=== PATIENT | male | born 1955 | race Caucasian/White ===

== ENCOUNTER 2018-02-06 21:24 | Observation (INO) | payer OTHER ==
[2018-02-06] MEDS ORDERED: NS 1,000 ML IV ONE (22:01)
--- NOTE | 2018-02-06 22:01 | EDPHY ---
H & P Stated Complaint: 4 DAYS HERNANDEZ, WORST EVER TONIGHT,FEVERS/NIGHT SWEATS/RASH JUNAID, SAW PCP TODAY, Time Seen by Provider: 02/06/18 21:58 HPI/ROS: HPI CHIEF COMPLAINT: Headache, rash, fever HISTORY OF PRESENT ILLNESS: The patient very pleasant 62-year-old male, is otherwise healthy denies having any significant medical history does have a remote history of headaches he presents emergency room for a rash that appears to be petechial on his legs and around his ankles, diffuse joint pain and swelling, additionally has been sick for 4 days with a fever. He states 4 days ago developed a fever 102.8. The high his fever he saw was 103. He did not have a fever today. He developed a right-sided headache. He describes sharp stabbing the right-sided headache goes from his right frontal region down his right neck. He denies stiff neck. He called his primary care doctor's referred here to the emergency room. Patient states that his main complaint is a headache right-sided, additionally joint pain. Denies chest pain or shortness of breath, denies productive cough. Denies vomiting or diarrhea. Denies stiff neck. He was started on Tamiflu by his PCP PCP: Dr. Araceli Caro. [facility]. Past Medical History: Denies medical history Past Surgical History: Denies recent surgery Social History: Denies daily use drugs alcohol tobacco. Family History: Noncontributory ROS REVIEW OF SYSTEMS: A comprehensive 10 point review of systems is otherwise negative aside from elements mentioned in the history of present illness. Exam Constitutional appears well nontoxic triage nursing summary reviewed, vital signs reviewed, awake/alert. Eyes normal conjunctivae and sclera, EOMI, PERRLA. HENT normal inspection, atraumatic, moist mucus membranes, no epistaxis, neck supple/ no meningismus, no raccoon eyes. Respiratory clear to auscultation bilaterally, normal breath sounds, no respiratory distress, no wheezing. Cardiovascular rate normal, regular rhythm, no murmur, no edema, distal pulses normal. Gastrointestinal soft, non-tender, no rebound, no guarding, normal bowel sounds, no distension, no pulsatile mass. Genitourinary no CVA tenderness. Musculoskeletal no midline vertebral tenderness, full range of motion, no calf swelling, no tenderness of extremities, no meningismus, good pulses, neurovascularly intact. Skin there is a petechial rash on his anterior shins and ankles. Neurologic no meningeal signs on exam no stiff neck, awake, alert and oriented x 3, AAOx3, moves all 4 extremities equally, motor intact, sensory intact, CN II -XII intact, normal cerebellar, normal vision, normal speech. Psychiatric normal mood/affect. Heme/Lymph/Immune no lymphadenopathy. Differential Diagnosis: Includes but is not limited to in a particular order viral process, viral syndrome, infection, bacteremia, sepsis, meningitis, viral meningitis, bacterial meningitis, encephalitis Medical Decision Making: Plan for this patient with fever, particular rash, headache will obtain blood work, blood cultures, IV fluids, IV Dilaudid for pain control IV Zofran for nausea CT head, check urinalysis, check flu, will discuss with patient about possible spinal tap. Re-evaluation: CT head: wo: Negative for acute bleed or mass, called to me by Dr. Dale Reed. ED x-ray chest one view: Negative for cardiopulmonary disease. 1247: Discussed in detail about the patient's workup so far in emergency room with blood work chest x-ray CT. Blood cultures are pending. Given his particular rash on his lower extremities and headache and fever earlier in the week discussed at length with him risk versus benefit about lumbar puncture. He has agreed to the lumbar puncture. Reason for lumbar puncture headache, neck pain, fever petechial rash. Rule out encephalitis/meningitis. I did explain to my do think Bactrim meningitis is unlikely given how well he looks in his process been going on for 4-5 days. However it is possible he has a viral meningitis/encephalitis. He has agreed for the lumbar puncture. The risk versus benefits have been discussed with him. Procedure: Lumbar puncture. Indication: Rule out meningitis, encephalitis After verbal informed consent from patient explaining the risks including infection, bleeding, and neurologic damage, a lumbar puncture was performed after the patient was prepped and draped in the usual fashion. The back was anesthetized with 1% lidocaine. Was unable to get return of CSF after multiple attempts at spinal tap. I kept hitting resistance. He was in a seated position appropriate landmarks were identified 3 attempts were made at spinal tap however I kept hitting resistance most likely arthritic changes. The procedure was performed by myself. 0115: Will discuss case with Infectious Disease. Will still plan on admission to the hospital. 0130AM: Spoke with Dr. Mendenhall and discussed the case at length. He will be glad to consult on him and see him in the hospital. I explained the patient appears well nontoxic does not have any significant meningeal signs on exam. I discussed that I was unable to perform a spinal tap. I discussed that I think meningitis is unlikely. We discussed about giving him antibiotics why his blood cultures are pending. We decided on 2 g IV Rocephin hospital admission and observation. Infectious disease will consult on him in the morning. Additionally medicine Dr. Montanez will admit. I discussed the case with the patient. Agreeable for admission. Most likely this is a viral etiology versus autoimmune versus vasculitis. I think meningitis is unlikely. 2 g Rocephin as been given. Blood cultures pending. Source: Patient - Personal History Current Tetanus/Diphtheria Vaccine: Yes - Medical/Surgical History Hx Asthma: No Hx Chronic Respiratory Disease: No Hx Diabetes: No Hx Cardiac Disease: No Hx Renal Disease: No Hx Cirrhosis: No Hx Alcoholism: No Hx HIV/AIDS: No Hx Splenectomy or Spleen Trauma: No Other PMH: LARYNGOSPASM, MIGRAINES - Social History Smoking Status: Never smoked Constitutional: Initial Vital Signs Temperature (C) 36.8 C 02/06/18 21:50 Heart Rate 74 02/06/18 21:50 Respiratory Rate 18 02/06/18 21:50 Blood Pressure 149/81 H 02/06/18 21:50 O2 Sat (%) 94 02/06/18 21:50 O2 Delivery Mode Nasal Cannula O2 (L/minute) 2 Allergies/Adverse Reactions: levofloxacin [From Levaquin] Allergy (Verified 02/07/18 09:42) Swelling/neck,face,throat Home Medications: Medication Instructions Recorded Herbals/Supplements -Info Only 1 ea PO DAILY 02/07/18 Medical Decision Making - Data Points Laboratory Results: Laboratory Results 02/06/18 22:36 02/06/18 22:36 Microbiology Results: MICROBIOLOGY 02/06/18 23:10 Urine,Catheterized Urine Culture - Preliminary 02/06/18 08:40 Nasal, Sinus - Other Respiratory Panel (PCR) - Final No Organism Detected Medications Given: Discontinued Medications Hydromorphone HCl (Dilaudid) 1 mg IVP EDNOW ONE Stop: 02/06/18 22:15 Last Admin: 04/18/18 22:31 Dose: 1 mg Sodium Chloride (Ns) 1,000 mls @ 0 mls/hr IV ONCE ONE; Wide Open PRN Reason: Protocol Stop: 02/06/18 22:02 Last Admin: 02/06/18 22:30 Dose: 1,000 mls Sodium Chloride (Ns) 1,000 mls @ 0 mls/hr IV ONCE ONE PRN Reason: Wide Open Stop: 02/07/18 00:15 Last Admin: 02/07/18 00:19 Dose: 1,000 mls Ceftriaxone Sodium 2 gm/ (Sterile Water) 20 mls @ 300 mls/hr IV EDNOW ONE PRN Reason: Protocol Stop: 02/07/18 01:26 Last Admin: 02/07/18 01:39 Dose: 20 mls Ketorolac Tromethamine (Toradol) 15 mg IVP Q6HRS RANJANA Stop: 02/12/18 11:59 Last Admin: 02/07/18 10:23 Dose: 15 mg Morphine Sulfate (Morphine) 1 - 2 mg IVP Q1HR PRN PRN Reason: Pain, Severe Unable to Take PO Stop: 02/17/18 02:29 Last Admin: 02/07/18 07:26 Dose: 1 mg Ondansetron HCl (Zofran) 4 mg IVP EDNOW ONE Stop: 02/06/18 22:15 Last Admin: 02/06/18 22:31 Dose: 4 mg Departure - Departure Disposition: [facility] Acute Clinical Impression: Rash Fever Qualifiers: Fever type: due to other condition Qualified Code(s): R50.81 - Fever presenting with conditions classified elsewhere Headache Qualifiers: Headache type: unspecified Headache chronicity pattern: acute headache Intractability: not intractable Qualified Code(s): R51 - Headache Condition: Good
[2018-02-06] MEDS ORDERED: ONDANSETRON 4 MG/2 ML VIAL IVP ONE (22:14)
[2018-02-06] MEDS ORDERED: HYDROmorphONE/DILAUDID 2 MG/ML INJ IVP ONE (22:14)
[2018-02-06 22:51] LABS: PLATELET COUNT 124 10^3/uL (150-400)
[2018-02-06] MEDS ORDERED: OLANZapine 5 MG TAB PO ONE (23:00)
[2018-02-07] MEDS ORDERED: NS 1,000 ML IV ONE (00:14)
[2018-02-07 01:11] LABS: CREATINE KINASE 44 IU/L (0-224)
[2018-02-07] MEDS ORDERED: cefTRIAXone 2 GM in STERILE WATER INJ 20 ML IV ONE (01:23)
[2018-02-07] MEDS ORDERED: ACETAMINOPHEN 325 MG TAB PO PRN (02:30)
[2018-02-07] MEDS ORDERED: NS 1,000 ML IV SCH (02:30)
[2018-02-07] MEDS ORDERED: ONDANSETRON 4 MG/2 ML VIAL IVP PRN (02:30)
[2018-02-07] MEDS ORDERED: LORazepam 0.5 MG TAB PO PRN (02:30)
[2018-02-07 08:39] LABS: PLATELET COUNT 125 10^3/uL (150-400)
[2018-02-07] MEDS ORDERED: ENOXAPARIN 40 MG/0.4 ML SYR SC SCH (09:00)
--- NOTE | 2018-02-07 09:36 | PDGENHP ---
History and Physical - Chief Complaint Fever, headache, rash - History of Present Illness Source-patient provides history appears reliable. EMR reviewed and case discussed with ED provider HPI - is a pleasant 62-year-old gentleman on with history significantly for migraines who presents emergency department with complaints of 4 day history of fevers, diffuse joint pain and petechial rash lower extremities. Patient reports that he had been following up with his PCP on he was treated with Tamiflu for concerns of a flu he not have any improvement in symptoms and continued to spike temperatures up to 103 F at home. Patient denies any myalgias. No sick contacts. He has had recent travel to [place] only no exposures to sick contacts or unfiltered water. Patient is unsure of how long the rash on his lower extremities he has been with standing as he just noticed it yesterday. The patient finally presented to the emergency department due to the development of a right-sided frontal headache as sharp and stabbing. Patient subsequently developed worsening headache with some some tightness in his right neck. Denies any stiffness. No nausea vomiting. Patient presented again to his PCPs office and was referred to the emergency department for further evaluation given his worsening headache and constellation of symptoms. In the emergency department patient underwent CT scan which was negative for any acute findings. Chest x-ray was also noted to be negative. Several attempts were made to for lumbar puncture but were unsuccessful and aborted. Infectious Disease was consulted from the emergency department and recommended IV antibiotic dosing x1 and they will evaluate the morning. History Information - Allergies/Home Medication List Allergies/Adverse Reactions: levofloxacin [From Levaquin] Allergy (Verified 02/07/18 09:42) Swelling/neck,face,throat Home Medications: Herbals/Supplements -Info Only 1 ea PO DAILY 02/07/18 [Last Taken Unknown] I have personally reviewed and updated: family history, medical history, social history, surgical history - Past Medical History Additional medical history: Migraine headaches history of basal cell carcinoma his face removed, laryngospasms. - Surgical History Additional surgical history: Cataract extraction with lens placement. Retinal detachment repair. - Family History Additional family history: No family history of autoimmune disorders. No diabetes, CAD, CVA. - Social History Smoking Status: Never smoked Alcohol Use: None Drug Use: None Additional social history: Patient is lives with his . Cor status- full Review of Systems Review of Systems: ROS: 10pt was reviewed & negative except for what was stated in HPI & below ( See HPI. Remainder review of systems negative except as noted above.) Physical Exam Physical Exam: Selected Entries 02/06/18 21:50 Blood Pressure Automatic Method Heart Rate 74 Respiratory 18 Rate O2 Sat (%) 94 Temperature (C) 36.8 C Blood Pressure 149/81 H Mean Arterial 103 H Pressure (MAP) O2 Delivery Room Air Mode Temperature Oral Source Temp Pulse Resp BP Pulse Ox 36.8 C 64 18 125/66 H 91 L 02/07/18 07:43 02/07/18 07:43 02/07/18 07:43 02/07/18 07:43 02/07/18 07:43 O2 (L/minute) 2 Constitutional: no apparent distress, other (NAD. Patient is pleasant adult gentleman who lays quietly in bed. He does appear fatigued. Nontoxic.) Eyes: PERRL, anicteric sclera, EOMI, No scleral injection Ears, Nose, Mouth, Throat: moist mucous membranes, other (No nasal discharge.), No poor dentition Cardiovascular: regular rate and rhythym (Slightly bradycardic), no murmur, rub , or gallop, No edema Peripheral Pulses: 2+: dorsalis-pedis (R), dorsalis-pedis (L) Respiratory: no respiratory distress, no rales or rhonchi, clear to auscultation , No reduced air movement Gastrointestinal: normoactive bowel sounds, soft, non-tender abdomen, no palpable masses, No distension Genitourinary: no bladder tenderness, No diaz in urethra Skin: warm, normal color, rash (Petechial rash bilateral lower extremities between ankle and knees bilaterally. ), No mottled, No erythema Musculoskeletal: full muscle strength (Patient sits up independently.) Neurologic: AAOx3, sensation intact bilaterally, other (Grossly nonfocal), No facial droop Psychiatric: interacting appropriately, not anxious, not encephalopathic, thought process linear, other (For process content and questions are all appropriate.) Lab Data & Imaging Review 02/07/18 08:13 02/07/18 08:13 WBC 3.68 10^3/uL (3.80-9.50) L 02/07/18 08:13 RBC 4.39 10^6/uL (4.40-6.38) L 02/07/18 08:13 Hgb 13.4 g/dL (13.7-17.5) L 02/07/18 08:13 Hct 39.7 % (40.0-51.0) L 02/07/18 08:13 MCV 90.4 fL (81.5-99.8) 02/07/18 08:13 MCH 30.5 pg (27.9-34.1) 02/07/18 08:13 MCHC 33.8 g/dL (32.4-36.7) 02/07/18 08:13 RDW 13.0 % (11.5-15.2) 02/07/18 08:13 Plt Count 125 10^3/uL (150-400) L 02/07/18 08:13 MPV 10.1 fL (8.7-11.7) 02/07/18 08:13 Neut % (Auto) 65.2 % (39.3-74.2) 02/07/18 08:13 Lymph % (Auto) 23.1 % (15.0-45.0) 02/07/18 08:13 [place] % (Auto) 11.1 % (4.5-13.0) 02/07/18 08:13 Eos % (Auto) 0.3 % (0.6-7.6) L 02/07/18 08:13 Baso % (Auto) 0.0 % (0.3-1.7) L 02/07/18 08:13 Nucleat RBC Rel Count 0.0 % (0.0-0.2) 02/07/18 08:13 Absolute Neuts (auto) 2.40 10^3/uL (1.70-6.50) 02/07/18 08:13 Absolute Lymphs (auto) 0.85 10^3/uL (1.00-3.00) L 02/07/18 08:13 Absolute Monos (auto) 0.41 10^3/uL (0.30-0.80) 02/07/18 08:13 Absolute Eos (auto) 0.01 10^3/uL (0.03-0.40) L 02/07/18 08:13 Absolute Basos (auto) 0.00 10^3/uL (0.02-0.10) L 02/07/18 08:13 Absolute Nucleated RBC 0.00 10^3/uL (0-0.01) 02/07/18 08:13 Immature Gran % 0.3 % (0.0-1.1) 02/07/18 08:13 Immature Gran # 0.01 10^3/uL (0.00-0.10) 02/07/18 08:13 ESR 13 MM/HR (0-20) 02/06/18 22:36 VBG Lactic Acid 0.9 mmol/L (0.7-2.1) 02/06/18 23:00 Sodium 138 mEq/L (135-145) 02/07/18 08:13 Potassium 4.7 mEq/L (3.5-5.2) 02/07/18 08:13 Chloride 102 mEq/L (97-110) 02/07/18 08:13 Carbon Dioxide 28 mEq/l (22-31) 02/07/18 08:13 Anion Gap 8 mEq/L (8-16) 02/07/18 08:13 BUN 14 mg/dL (7-23) 02/07/18 08:13 Creatinine 0.7 mg/dL (0.7-1.3) 02/07/18 08:13 Estimated GFR > 60 02/07/18 08:13 Glucose 107 mg/dL (70-100) H 02/07/18 08:13 Calcium 8.2 mg/dL (8.5-10.4) L 02/07/18 08:13 Magnesium 1.8 mg/dL (1.6-2.3) 02/07/18 08:13 Total Bilirubin 0.8 mg/dL (0.1-1.4) 02/06/18 22:36 Conjugated Bilirubin 0.6 mg/dL (0.0-0.5) H 02/06/18 22:36 Unconjugated Bilirubin 0.2 mg/dL (0.0-1.1) 02/06/18 22:36 AST 45 IU/L (17-59) 02/06/18 22:36 ALT 92 IU/L (21-72) H 02/06/18 22:36 Alkaline Phosphatase 215 IU/L (38-126) H 02/06/18 22:36 Creatine Kinase 44 IU/L (0-224) 02/06/18 22:36 Troponin I < 0.012 ng/mL (0.000-0.034) 02/07/18 08:13 C-Reactive Protein 41.7 mg/L (<10.0) H 02/06/18 22:36 Total Protein 6.1 g/dL (6.3-8.2) L 02/06/18 22:36 Albumin 3.3 g/dL (3.5-5.0) L 02/06/18 22:36 Procalcitonin 0.14 ng/mL (0.02-0.10) H 02/06/18 22:36 Urine Color YELLOW 02/06/18 23:10 Urine Appearance CLEAR 02/06/18 23:10 Urine pH 5.0 (5.0-7.5) 02/06/18 23:10 Ur Specific [place] 1.010 (1.002-1.030) 02/06/18 23:10 Urine Protein NEGATIVE (NEGATIVE) 02/06/18 23:10 Urine Ketones NEGATIVE (NEGATIVE) 02/06/18 23:10 Urine Blood 1+ (NEGATIVE) H 02/06/18 23:10 Urine Nitrate NEGATIVE (NEGATIVE) 02/06/18 23:10 Urine Bilirubin NEGATIVE (NEGATIVE) 02/06/18 23:10 Urine Urobilinogen NEGATIVE EU (0.2-1.0) 02/06/18 23:10 Ur Leukocyte Esterase NEGATIVE (NEGATIVE) 02/06/18 23:10 Urine RBC 1-3 /hpf (0-3) 02/06/18 23:10 Urine WBC 1-3 /hpf (0-3) 02/06/18 23:10 Ur Epithelial Cells TRACE /lpf (NONE-1+) 02/06/18 23:10 Urine Mucus TRACE /lpf (NONE-1+) 02/06/18 23:10 Urine Glucose NEGATIVE (NEGATIVE) 02/06/18 23:10 Nasal Influenza A PCR NEGATIVE FOR FLU A (NEGATIVE) 02/06/18 22:55 Nasal Influenza B PCR NEGATIVE FOR FLU B (NEGATIVE) 02/06/18 22:55 Imaging Review: CT Scan of the Head (Without Contrast) Clinical History: 62-year-old male with a headache since 4:00 PM with joints' aching. Rule out acute intracranial abnormality. Technique: Axial unenhanced images were obtained from the vertex through the skull base, reformatted at 5.00 and 1.50 mm increments, and reviewed in bone, brain, and subdural windows. Images were reprocessed in parasagittal and paracoronal planes. Dose reduction techniques were utilized. The DFOV is 25.0 cm. Comparison Study: MR imaging of the brain, dated 02/24/2011. Findings: The ventricles and basilar cisterns are normal in size, and symmetrical in configuration. There is no midline shift, or other evidence of mass effect. There is no abnormal intra or extra-axial blood collection, or acute infarction identified. The mastoids are patent. There is mild chronic mucosal thickening in the right maxillary sinus, and minimally involving the ethmoids. There is mild rightward nasal septal deviation. There is no air-fluid level or osseous erosion. The craniocervical junction, pineal gland, and the orbits are within normal limits. There is an empty sella turcica. There is some physiologic anterior interhemispheric falcine calcification. There is no acute calvarial fracture, or osteolytic or blastic lesion. Impression: There is no acute intracranial abnormality identified on this unenhanced CT evaluation. If there is further clinical concern regarding the patient's symptoms, MR imaging is suggested, if not otherwise contraindicated. Findings were discussed with Chriss Carter MD at 22:33, on 02/06/2018. Portable AP Upright Chest, at 10:16 PM Clinical History: 62-year-old male with a headache, rash, and achy joints. Comparison Study: Chest, dated 09/13/2012. Findings: The cardiac and mediastinal silhouette is normal in size (given the portable AP technique ). There is no focal infiltrate, atelectasis, pleural effusion, peripheral interstitial edema, or pneumothorax. The osseous structures are age-appropriate. Impression: Normal. Visualized and Interpreted imaging results: Yes Assessment & Plan Assessment: Fever (Acute) - differential diagnosis including viral syndrome versus bacterial infection of unclear etiology versus autoimmune or vasculitides. Patient does have a mild pancytopenia and history of intermittent fevers with a petechial rash. Unfortunately on lumbar puncture was unsuccessful and subsequently aborted. Infectious Disease consulted to assist with further evaluation. Influenza negative. Patient has received a 2 g dose of Rocephin at this time. Patient with a recent trip to [place]. No known insect bites or sick contacts. Blood cultures are pending. Patient does not meet sepsis criteria. Headache (Acute) - patient status post dose of Dilaudid in the emergency department as well as some IV fluids in and reports slight improvement in his headache. He continues to deny any nuchal rigidity, meningeal signs or visual changes. CT head was negative for any acute findings.. He does have a history of migraine headaches. Patient with pain medications add Toradol p.r.n.. At this time patient declines any treatment. Rash (Acute) - patient with the lower extremity petechial rash. Mild pancytopenia is present. Differential diagnosis including infectious versus less likely malignancy or for medications as patient does not report any over- the-counters ors prescription. Pancytopenia-likely related to patient's acute illness. Continue to monitor CBC. Hypoalbuminemia - secondary to acute illness continue monitor. Diet as tolerated. Mild transaminitis-baseline is unknown at this time for comparison. Likely related to patient's acute illness will continue to monitor. FEN - continue with IV fluid hydration. Encourage oral intake as tolerated. Monitor electrolytes replace if needed. Diet as tolerated. PPX-SCDs if tolerated. Holding anticoagulation secondary to thrombocytopenia. Cor-full Disposition patient mid admitted to observation status at this time pending further evaluation and Infectious Disease recommendations.
[2018-02-07 11:55] VITALS: BP 110/65
[2018-02-07] MEDS ORDERED: KETOROLAC 15 MG/1 ML SDV IVP SCH (12:00)
--- NOTE | 2018-02-07 15:57 | GCON ---
[f rep st] CONSULTATION INPATIENT INFECTIOUS DISEASE CONSULTATION REFERRING PHYSICIAN: Celsa Montanez MD REASON FOR REFERRAL: Fevers, lower extremity rash. HISTORY OF PRESENT ILLNESS: Patient is a 62-year-old male who presented to [facility] Emergency Room in the evening of 02/06/2018. Patient reports approximately a 4-day history of fevers , joint pain and a rash on his lower extremities. He has a history of migraine headaches and a sever e headache that was right-sided precipitated his presentation to the emergency room. The patient had been to his primary care physician and was started on Tamiflu empirically but his flu testing became negative on sampling. He relates that he had temperature elevations for the past 4 days up to 103 d egrees Fahrenheit at home. The patient travels frequently to [place] and had been there within the ast couple of weeks. He reported no clear sick contacts. He is outside most of the day when he is i n [place], playing tennis. The patient is accompanied by his on these trips. One of his adult daughters also accompanied him recently. His adult daughters are in the room during the interview. He denies any respiratory complaints. No productive cough. No shortness of breath. He also denies any gastrointestinal complaints. No diarrhea or vomiting. No nausea or abdominal pain. The patient also denies any urinary complaints. Workup so far reveals a mild leukopenia, a mild thrombocytopenia and a small transaminitis. CT scan of his head and chest x-ray were negative. Lumbar puncture was attempted but ultimately unsuccessful and was aborted. He received 1 dose of ceftriaxone in the emergency room. The patient this morning feels wonderful. He denies any fevers or chills. He states he had a good night sleep last night. He does not have much in the way of symptoms currently. His headache it is back down to what he rela brayan is his normal headache. He attributes his severity of his headache on presentation to possibly n ot being able to drink caffeine over the last couple of days. Patient apparently drinks multiple cup s of caffeinated coffee daily. Currently, he is resting comfortably. No new issues. PAST MEDICAL HISTORY: Essentially negative. Migraine headaches would be 1 chronic condition. Patie nt has also had a history of basal cell carcinoma. PAST SURGICAL HISTORY: 1. Status post retinal detachment repair. 2. Status post cataract surgeries. 3. Status post basal cell carcinoma excision. ANTIBIOTICS: None currently. ALLERGIES: No known drug allergies. SOCIAL HISTORY: The patient is . No tobacco, alcohol or drug use. He has 2 adult daughters. FAMILY HISTORY: Reviewed but noncontributory. REVIEW OF SYSTEMS: Other than that detailed above in history of present illness, comprehensive 10-sy stem review is negative. PHYSICAL EXAMINATION: VITAL SIGNS: Temperature maximum 36.9, temperature current 36.9, heart rate i s 63, respiratory rate is 18, blood pressure is 110/65. GENERAL: The patient is a well-formed, well -nourished, older male, in no acute distress. He is not toxic in appearance. He is alert and orient ed x3. He is pleasant in demeanor. HEENT: Normocephalic for age. Atraumatic. No scleral icterus. No drainage from the nares. Eyes: Lids and conjunctivae are within normal limits. Pupils are equ al and round bilaterally. NECK: Supple. No meningismus. LUNGS: Clear to auscultation. Good effo rt. HEART: Regular rate and rhythm and rhythm. The patient has minimal peripheral edema, right gre ater than left. SKIN: Warm and dry to the touch. The patient has a mild papular rash on his lower extremities bilaterally. These lesions are small and nontender. They do not jeannette. MUSCULOSKELETA L: No other muscle tenderness is noted. No joint line effusion or arthritis is seen. NEURO: Crani al nerves 2-12 seem to be intact. Peripheral sensation seems intact in extremities. LABORATORY DATA: Patient has a CBC dated 02/07/2018, shows a white blood cell count of 3.7, hemoglob in 13.4, hematocrit 39.7, platelet count of 125, differentials within normal limits. Serum chemistri es on 02/07/2018, show sodium 138, potassium 4.7, chloride 102, bicarb of 28, BUN of 14, creatinine 0 .7. Procalcitonin level is 0.14. C-reactive protein level is mildly elevated at 41.7. AST is 45, A LT is 92. Urinalysis on 02/06/2018, is within normal limits apart from 1+ blood. Flu swab dated , are negative PCR for both influenza A and B. MICROBIOLOGIC DATA: Patient has blood cultures dated 02/06/2018, which are pending. Urine culture a lso dated 02/06/2018, is pending. The patient has a respiratory viral panel PCR which is negative. ASSESSMENT: Febrile illness with presentation of severe headache. Workup for headache is negative. Patient has no clinical signs and symptoms of meningismus or concerns for meningitis. I would not p ursue this diagnostic pathway at this point. The patient's improvement is clearly not due to the cef triaxone that he received less than 12 hours ago. I think that he had a viral illness that was due t o improve at this point in time. I think his headache on presentation was likely due to caffeine wit hdrawal, not being able to consume his coffee for the last few days. The patient looks and feels wel l. I do not think there is any need to keep him in-house at this point. Will let him go home with h is and children, and the patient will self report either back to his primary care physician or c ome back to the emergency room if need be. PLAN: 1. Discontinue all antibiotics and discharge. 2. Follow up with primary care physician. /[id number]/MODL
--- NOTE | 2018-02-07 18:54 | PDDCSUM ---
Discharge Summary Discharge Summary: DISCHARGE SUMMARY FOLLOW-UP ITEMS: Repeat complete metabolic profile and CBC in 1-2 weeks DATE OF ADMISSION: 02/06/2018 DATE OF DISCHARGE: 02/07/2018 DISCHARGE DIAGNOSES: 1. Acute viral syndrome 2. Pancytopenia secondary to viral syndrome 3. Acute transaminitis secondary to viral syndrome CONSULTATIONS: Infectious Disease PROCEDURES / IMAGING: Attempt at lumbar puncture, unsuccessful CHIEF COMPLAINT: Acute fever, headache, myalgias, partially articular arthralgias, rash SUBJECTIVE: Patient is feeling well at time discharge, she continues to experience some arthralgias, but the other symptoms have abated PHYSICAL EXAM ON DISCHARGE: Afebrile during the entirety of his stay, systolic blood pressure 120-130, heart rate in the 60s, satting on room air, nonblanching petechial rash along the anterior aspect of the bilateral lower extremities distal to the mid calf, lungs are clear to auscultation bilaterally, full range of motion of the neck without any meningismus LABS ON DISCHARGE: ESR negative, CRP 42, troponin negative, ALT 92, alk-phos 215, urinalysis unremarkable, our respiratory viral panel negative, flu panel negative, potassium 3.7, creatinine 0.8, white blood cell count 3700, hemoglobin 13.4, platelets a [id number] HOSPITAL COURSE BY PROBLEM: The patient presented with an acute viral syndrome resulting in symptoms consisting of headache, fever, arthralgias, myalgias, petechial rash. The patient was ruled out for a severe respiratory viral pathogen, and did not demonstrate any evidence of systemic hemodynamic instability. His rash was most likely precipitated by excessive use of ibuprofen to control his symptoms supportively prior to arrival, exacerbated by his mild thrombocytopenia. His transaminitis was most likely secondary to excessive use of Tylenol prior to arrival as well as likely hepatic irritation in the setting of viral syndrome. The patient was evaluated by Infectious Disease, and they did not recommend any further infectious workup. The patient received supportive IV fluids, underwent an unsuccessful lumbar puncture, and was symptomatically feeling completely improved on 02/07, rendering him safe for discharge home. I communicated with the patient's primary care provider, share the information outlined above, and she will repeat the patient's metabolic profile as well as CBC in 1-2 weeks. DISCHARGE MEDICATIONS: Please see official discharge medication reconciliation sheet in chart , continue all home medications. DISCHARGE INSTRUCTIONS: Please follow up with primary care provider in 1-2 weeks with labs prior to that appointment.
== END 2018-02-07 15:10 | disposition home or self-care (01) ==
LOC: F2W 02-07 02:18
PROVIDERS: ADMIT Family Medicine; ATTEND Internal Medicine
DX: B34.9 Viral infection, unspecified (principal); D61.818 Other pancytopenia; R74.0 Nonspecific elevation of levels of transaminase and lactic acid dehydrogenase [LDH]; R50.9 Fever, unspecified; R51 Headache; R21 Rash and other nonspecific skin eruption; D72.819 Decreased white blood cell count, unspecified; D69.6 Thrombocytopenia, unspecified
CPT/HCPCS: 70450; 71045; G0378; 96374; J0696; J1170; J1885; J2270; J2405